=== PATIENT | male | born 1955 | race Caucasian/White ===

== ENCOUNTER 2016-09-24 16:15 | Emergency (ER) | payer MEDICAID ==
[~2016-09-24] VITALS: Ht 182.9 cm; Wt 109.8 kg
[~2016-09-24 16:15] MED LIST: GLYB5TAB7 PO; GLYBURIDE; LISINOPRIL; METF-303 PO; METF-305 PO
[2016-09-24 16:39] VITALS: BP 100/56; PULSE 74; RESP 18; TEMP 98.2; O2SAT 100
--- NOTE | 2016-09-24 16:46 | NUR ---
Pt placed to ER bed 06, to [place], report given to CORBY Gee.
--- NOTE | 2016-09-24 16:50 | NUR ---
DANIELITO BOLES [employer] CONSULTANT AT BEDSIDE
--- NOTE | 2016-09-24 16:55 | NUR ---
PT PRESENTS TO ED C/O L BUTTOCKS X 1 WK REOCCUR EVERY TWO WKS. PT TO RECEIVE I & D
[2016-09-24] MEDS ORDERED: HYDROcodone/ACETAMIN 5-325 MG TAB (NORCO/ VICODIN) PO ONE (17:00)
[2016-09-24] MEDS ORDERED: SULFAMETHOXAZOLE/TRIMETHOPR DS 1 TABLET PO ONE (17:00)
[2016-09-24] MEDS ORDERED: LIDOCAINE/PRILOCAINE 5 GM CREAM (EMLA) TP ONE (17:00)
[2016-09-24] MEDS ORDERED: CEPHALEXIN 500 MG CAPSULE PO ONE (17:00)
[2016-09-24] MEDS ORDERED: LIDOCAINE/EPI 2% 1:100000 20 ML VIAL INJ ONE (17:00)
--- NOTE | 2016-09-24 17:46 | NUR ---
PT RECEIVING WOUND CARE
--- NOTE | 2016-09-24 18:09 | NUR ---
Patient medicated per orders. Patient made aware norco may put him at risk for falls, patient return verbalized and states he has taken norco before
--- NOTE | 2016-09-24 18:33 | NUR ---
Patient given written and verbal discharge instructions and verbalizes understanding. ER MD discussed with patient the results and treatment provided. Patient in stable condition. ID arm band removed. Rx of keflex, bactrim, and norco 5-325 given. Patient educated on pain management and to follow up with PMD. Pain Scale 0/10. Opportunity for questions provided and answered.
[2016-09-24 18:39] VITALS: BP 101/59; PULSE 76; RESP 18; TEMP 98.2; O2SAT 100
== END 2016-09-24 18:36 | disposition home or self-care (01) ==
LOC: SED 16:15
DX: L02.416 Cutaneous abscess of left lower limb (principal); I10 Essential (primary) hypertension; E11.40 Type 2 diabetes mellitus with diabetic neuropathy, unspecified; F17.210 Nicotine dependence, cigarettes, uncomplicated
CPT/HCPCS: 99284

== ENCOUNTER 2016-09-26 15:47 | Emergency (ER) | payer MEDICAID ==
[~2016-09-26] VITALS: Ht 182.9 cm; Wt 109.8 kg
[2016-09-26 16:00] VITALS: BP_SYST 102; BP_SYST 87
== END 2016-09-26 17:35 | disposition home or self-care (01) ==
LOC: SED 15:47
DX: Z48.00 Encounter for change or removal of nonsurgical wound dressing (principal); E11.9 Type 2 diabetes mellitus without complications; I10 Essential (primary) hypertension; F17.210 Nicotine dependence, cigarettes, uncomplicated
CPT/HCPCS: 99283

== ENCOUNTER 2016-09-28 17:29 | Emergency (ER) | payer MEDICAID ==
[~2016-09-28] VITALS: Ht 182.9 cm; Wt 109.8 kg
[2016-09-28 17:44] VITALS: BP_SYST 94
== END 2016-09-28 19:10 | disposition left against medical advice (07) ==
LOC: SED 17:29
DX: Z48.01 Encounter for change or removal of surgical wound dressing (principal); Z53.21 Procedure and treatment not carried out due to patient leaving prior to being seen by health care provider

== ENCOUNTER 2016-09-29 13:00 | Emergency (ER) | payer MEDICAID ==
[~2016-09-29] VITALS: Ht 182.9 cm; Wt 109.8 kg
[2016-09-29 13:00] VITALS: BP 106/59; PULSE 69; RESP 16; TEMP 98; O2SAT 100
[2016-09-29 14:36] VITALS: BP 122/72; PULSE 80; RESP 18; TEMP 98.5; O2SAT 98
== END 2016-09-29 13:45 | disposition home or self-care (01) ==
LOC: SED 13:03
DX: Z48.01 Encounter for change or removal of surgical wound dressing (principal)
CPT/HCPCS: 99283

== ENCOUNTER 2017-01-09 22:45 | Emergency (ER) | payer MEDICAID ==
[~2017-01-09] VITALS: Ht 182.9 cm; Wt 102.1 kg
[2017-01-09 22:53] VITALS: BP_SYST 130
[2017-01-10 00:30] VITALS: BP_SYST 124
== END 2017-01-10 00:30 | disposition home or self-care (01) ==
LOC: SED 22:45
DX: H60.91 Unspecified otitis externa, right ear (principal); E11.9 Type 2 diabetes mellitus without complications; I10 Essential (primary) hypertension; Z79.84 Long term (current) use of oral hypoglycemic drugs; Z79.899 Other long term (current) drug therapy
CPT/HCPCS: 99283

== ENCOUNTER 2021-06-23 12:51 | Emergency (ER) | payer BC, MEDICAID ==
[~2021-06-23] VITALS: Ht 182.9 cm; Wt 113.4 kg
[~2021-06-23 12:51] MED LIST changes: -METF-303 PO; -METF-305 PO; +METF-379 PO; +METF-381 PO
[2021-06-23 13:00] VITALS: BP_SYST 122
--- NOTE | 2021-06-23 13:00 | NUR ---
Patient to ER bed 3 to gown for evaluation. Side rails up. Report given to CORBY GARCES.
[2021-06-23] MEDS ORDERED: HYDROcodone/ACETAMIN 10-325 MG TAB PO ONE (14:30)
--- NOTE | 2021-06-23 14:59 | NUR ---
x ray at bedside
[2021-06-23] MEDS ORDERED: HYDR-3917 PO (15:41)
[2021-06-23 15:51] VITALS: BP_SYST 137
--- NOTE | 2021-06-23 15:53 | NUR ---
Patient given written and verbal discharge instructions and verbalizes understanding. IFRAH cardoza MD discussed with patient the results and treatment provided. Patient in stable condition. ID arm band removed. Rx of hydrocodone given. Patient educated on pain management and to follow up with PMD. Pain Scale 2. Opportunity for questions provided and answered. Medication side effect fact sheet provided.
== END 2021-06-23 15:53 | disposition home or self-care (01) ==
LOC: SED 12:51
DX: M25.551 Pain in right hip (principal); I10 Essential (primary) hypertension; E11.9 Type 2 diabetes mellitus without complications; Z79.899 Other long term (current) drug therapy; Z79.84 Long term (current) use of oral hypoglycemic drugs
CPT/HCPCS: 73502; 99283

== ENCOUNTER 2024-02-08 14:56 | Emergency (ER) | payer BC ==
[~2024-02-08] VITALS: Ht 182.9 cm; Wt 108.9 kg
[~2024-02-08 14:56] MED LIST changes: +HYDR-3917 PO
[2024-02-08 15:03] VITALS: BP_SYST 101; PULSE 67; RESP 16; TEMP 98.1; O2SAT 99
[2024-02-08 16:42] LABS: BASOPHILS # (AUTO) 0.1 K/uL (0.0-0.2); BASOPHILS % (AUTO) 0.9 % (0.0-2.0); EOSINOPHILS # (AUTO) 0.2 K/uL (0.0-0.4); EOSINOPHILS % (AUTO) 2.2 % (0.0-4.0); HEMATOCRIT 32.6 % (36-54); HEMOGLOBIN 11.4 g/dL (14.0-18.0); LYMPHOCYTES # (AUTO) 1.5 K/uL (1.0-5.5); LYMPHOCYTES % (AUTO) 17.9 % (20.5-51.5); MEAN CORPUSCULAR HEMOGLOBIN 30 pg (27-31); MEAN CORPUSCULAR HGB CONC 35 % (32-36); MEAN CORPUSCULAR VOLUME 86 fL (79.0-98.0); MONOCYTES % (AUTO) 11.3 % (1.7-9.3); NEUTROPHILS # (AUTO) 5.8 K/uL (1.8-7.7); NEUTROPHILS % (AUTO) 67.7 % (40.0-70.0); PLATELET COUNT (AUTO) 334 K/uL (130-430); RED BLOOD CELL COUNT(AUTO) 3.81 MIL/uL (4.2-6.2); RED CELL DISTRIBUTION WIDTH 13.7 % (9.0-15.0); WHITE BLOOD COUNT (AUTO) 8.5 K/uL (4.8-10.8)
[2024-02-08 16:51] LABS: INR 0.9 (0.80-1.20); PROTHROMBIN TIME 9.7 SECS (9.5-12.5)
[2024-02-08 16:58] LABS: ALANINE AMINOTRANSFERASE 24 U/L (12-78); ALBUMIN 3.3 g/dL (3.4-4.8); ANION GAP 6 (5-15); ASPARTATE AMINOTRANSFERASE 15 U/L (10-37); CALCIUM 9.2 mg/dL (8.4-11.0); CARBON DIOXIDE 28 mmol/L (23-29); CHLORIDE 107 mmol/L (98-107); CREATININE 1.77 mg/dL (0.55-1.30); GFR AFRICAN AMERICAN 50 mL/min (>90); GLUCOSE 68 mg/dL (74-106); POTASSIUM 5.4 mmol/L (3.5-5.1); SODIUM SERUM 141 mmol/L (136-145); TOTAL BILIRUBIN 0.6 mg/dL (0.0-1.0); TOTAL PROTEIN, SERUM 7.2 g/dL (6.4-8.3); UREA NITROGEN, BLOOD 28 mg/dL (8-21)
[2024-02-08 16:59] LABS: GFR NON AFRICAN-AMERICAN 41 mL/min (>90)
[2024-02-08 17:26] LABS: BILIRUBIN,DIRECT 0.2 mg/dL (0.0-0.3)
[2024-02-08] MEDS ORDERED: LEVO-62 PO (17:34)
[2024-02-08] MEDS ORDERED: ACET-2634 PO (17:34)
[2024-02-08] MEDS ORDERED: ALBMDI INH (17:34)
[2024-02-08 17:42] LABS: COVID19 ANTIGEN SOFIA FIA NEGATIVE (NEGATIVE); INFLUENZA TYPE A Negative (NEGATIVE); INFLUENZA TYPE B NEGATIVE (NEGATIVE)
[2024-02-08] MEDS: IPRATROPIUM/ALBUTEROL SULFATE 3 ML AMPUL.NEB (DUONEB) INH ONE (17:42)
[2024-02-08] MEDS: NACL 0.9% 1,000 ML IV ONE (18:45)
[2024-02-08 21:41] VITALS: BP_SYST 134; PULSE 69; RESP 16; TEMP 98.5; O2SAT 96
== END 2024-02-08 21:41 | disposition home or self-care (01) ==
LOC: SED 14:56
DX: J18.9 Pneumonia, unspecified organism (principal); E11.9 Type 2 diabetes mellitus without complications; I10 Essential (primary) hypertension; Z20.822 Contact with and (suspected) exposure to COVID-19; Z79.899 Other long term (current) drug therapy; Z79.2 Long term (current) use of antibiotics
CPT/HCPCS: 99284; 96365; 71045; 87426; 80076; 80048; 83880; 85025; 85610; 85730; 84484; 36415; 94640; 83605; 87804 ×2; 82397; J1956; J7030; 94760